=== PATIENT | male | born 1990 | race Caucasian/White ===

== ENCOUNTER 2023-08-22 20:18 | Emergency (ER) | payer OTHER, SELFPAY ==
[2023-08-22 20:22] VITALS: BP 143/90; PULSE 70; RESP 18; TEMP 36.7; O2SAT 98
--- NOTE | 2023-08-22 20:44 | ED.RECABL ---
HPI - Recheck/Abnormal Lab/Rx General Chief Complaint: Recheck/Abnormal Lab/Rx Stated Complaint: med refill Time Seen by Provider: 08/22/23 20:43 Source: patient Mode of arrival: ambulatory Limitations: no limitations History of Present Illness HPI narrative: Patient is a 33 y/o male who presents to the ED with c/o medication refill. Patient reports he recently moved to the area from [place]. He takes Adderall 20 mg twice daily and states he has been out of this medication recently. He contacted his previous primary care doctor who reportedly sent a prescription in the mail. Patient is unsure when this will arrive. He has not had a chance to obtain a primary care doctor in the area here yet. He is wanting a refill of his Adderall. Denies needing any other medications refilled. Denies any other concerns. Related Data Allergies Allergy/AdvReac Type Severity Reaction Status Date / Time amoxicillin Allergy Hives Verified 08/22/23 20:44 shellfish derived Allergy Hives Verified 08/22/23 20:44 Review of Systems Review of Systems: CONSTITUTIONAL: Denies fever, chills, or sweats. EYES: Denies visual changes, redness, or discharge. ENT: Denies rhinorrhea, congestion, sore throat, or otalgia. CARDIOVASCULAR: Denies chest pain, palpitations, or edema. RESPIRATORY: Denies cough or dyspnea. GASTROINTESTINAL: Denies abdominal pain, nausea, vomiting. MUSCULOSKELETAL: Denies back pain, joint pain, or myalgia. NEUROLOGIC: Denies headache, numbness, or weakness. All systems reviewed & are unremarkable except as noted in HPI and below Exam Narrative: GENERAL: Well appearing, well-nourished, non-toxic, in no acute distress. HEAD: Normocephalic, atraumatic. EYES: PERRL/EOMI, conjunctiva clear. NECK: Supple. No adenopathy, no masses. RESPIRATORY: Airway patent, respirations nonlabored. CARDIOVASCULAR: Regular rate and rhythm without murmurs, rubs, or gallops. ABDOMINAL: Soft, nontender, nondistended, no hepatosplenomegaly. Normoactive BS. MUSCULOSKELETAL: Moves all extremities. No gross deformities. SKIN: Warm, dry, normal color. No rashes. NEURO: A&O X3. Speech clear. Cranial nerves II-XII grossly intact. Steady gait. No ataxic movements. PSYCHIATRIC: Appropriate mood and affect. Normal interaction. Course Vital Signs Vital signs: Vital Signs Temperature 98.1 F 08/22/23 20:22 Pulse Rate 70 08/22/23 20:22 Respiratory Rate 18 08/22/23 20:22 Blood Pressure 143/90 H 08/22/23 20:22 Pulse Oximetry 98 08/22/23 20:22 Oxygen Delivery Room Air 08/22/23 20:22 Temperature 98.1 F 08/22/23 20:22 Pulse Rate 70 08/22/23 20:22 Respiratory Rate 18 08/22/23 20:22 Blood Pressure 143/90 H 08/22/23 20:22 Pulse Oximetry 98 08/22/23 20:22 Oxygen Delivery Room Air 08/22/23 20:22 MDM - Recheck/Abnormal Lab/Rx MDM Narrative Medical decision making narrative: Patient presented to ED wanting medication refill of Adderall. Recently moved to the area from [place]. Awaiting a mail-in prescription. Patient in no acute distress. VSS. Discussed that this is not a medication that we typically refill through the ER as it is not a crucial medication. Advised close follow-up with local primary care doctor. Given physician directory book. Given return precautions. Medical Records Attestation: I reviewed the patient's medical records. Discharge Plan Discharge Clinical Impression: Encounter for medication refill Patient Disposition: Home, Self-Care Condition: Stable Instructions: Antibiotic Form, Amphetamine/Dextroamphetamine (By mouth) Additional Instructions: Follow-up with primary care to receive medication refills. Otherwise contact your previous primary care doctor to check on status of refill. Follow-up/Referrals: Ralph Zafar MD [Physician] - (PRIMARY CARE) PHYSICIAN,CD MANUFACTURING SUPERVISOR [Primary Care Provider] - Time of Disposition: 21:00
== END 2023-08-22 21:18 | disposition home or self-care (01) ==
LOC: ANHED 21:01
PROVIDERS: Emergency Provider Physician Assistant
DX: Z76.0 Encounter for issue of repeat prescription (principal)
CPT/HCPCS: 99281

== ENCOUNTER 2024-06-29 18:47 | Emergency (ER) | payer OTHER, SELFPAY ==
[2024-06-29 18:50] VITALS: BP 131/88; PULSE 96; RESP 18; TEMP 36.4; O2SAT 100
[2024-06-29 20:04] VITALS: BP 132/87; PULSE 102; RESP 14; TEMP 36.9; O2SAT 98
[2024-06-29 20:16] LABS: Basophils Absolute Auto 0.1 K/mm3 (0.0-0.1); Basophils Percent Auto 0.8 % (0.2-1.2); Eosinophils Absolute Auto 0.1 K/mm3 (0-0.3); Eosinophils Percent Auto 1.7 % (0-4.4); Hematocrit 44.6 % (42.0-52.0); Hemoglobin 15.9 g/dL (14.0-18.0); Immature Granulocyte Absolute 0.01 K/mm3 (0.00-0.031); Immature Granulocyte Percent A 0.2 % (0-0.5); Lymphocytes Absolute Auto 1.81 K/mm3 (0.9-3.2); Lymphocytes Percent Auto 27.3 % (18.3-44.2); Mean Corpuscular HGB Conc 35.7 g/dl (32-36); Mean Corpuscular Hemoglobin 31.8 pg (26-34); Mean Corpuscular Volume 89.2 fl (80-100); Mean Platelet Volume 9.2 fl (7.4-10.4); Monocytes Absolute Auto 0.6 K/mm3 (0.1-0.6); Monocytes Percent Auto 9.7 % (2.6-8.5); Neutrophils Percent Auto 60.3 % (45.5-73.1); Platelet Count Result 258 k/mm3 (150-375); Red Cell Distribution Width 11.3 % (11.5-14.5); White Blood Count 6.6 K/mm3 (4.5-10.0)
[2024-06-29 20:24] VITALS: BP 127/87; PULSE 97; RESP 15; TEMP 36.7; O2SAT 97
--- NOTE | 2024-06-29 20:24 | ED.GENADULT ---
HPI - General Adult General Chief complaint: GI Bleed Stated complaint: I am shitting blood Time Seen by Provider: 06/29/24 19:29 History of Present Illness HPI narrative: Patient is a 34-year-old male who presents to the emergency department this evening complaining of hematochezia. Patient states that he noticed bright red blood in his stools a few days ago and admits that he has had similar symptoms in the past which was due to a hemorrhoid. Patient states that this time he noticed that the bleeding was more than it was last time and he wanted to get it checked out. Admits to mild diarrhea as well. Denies any fevers or chills. Denies any pain with defecation, denies any family history of inflammatory bowel disease including ulcerative colitis and Crohn's and any history of colon cancer. Denies any nausea, vomiting or abdominal pain. No additional symptoms or concerns at this time. Related Data Allergies Allergy/AdvReac Type Severity Reaction Status Date / Time amoxicillin Allergy Hives Verified 06/28/24 16:57 shellfish derived Allergy Anaphylaxis Verified 06/29/24 20:24 Review of Systems Review of Systems: All systems are reviewed and are negative unless stated otherwise in the HPI. PMFSH Past Medical History Medical History ADHD Anxiety Depression Surgical History Surgical History Hx of tonsillectomy Family History Family History Father Hypertension Depression Mother Depression Social History Social History Smoking packs per day: 0 Smoking cigarettes per day: 0.0 Smoking status: Never smoker Smokeless tobacco user: chewing tobacco Second hand tobacco smoke exposure: No Alcohol intake: current Alcohol use details: on occassion Substance use: never Substance use type: does not use Lack of Transportation: No Lack of Food: Sometimes True Current Housing: I Have Housing Concerned About Future Housing: No Difficulty Paying Gas/Electric Bills: No Difficulty Paying for Meds: No Currently Unemployed: No Education: Master's Degree or Higher Difficulty w/ Childcare or Family Care: No Exam Narrative: General: Alert, awake, afebrile, in no acute distress. HEENT: PERRL, no rhinorrhea, no post nasal drip, oropharynx clear. Cardiovascular: Regular rate and rhythm, no murmurs, rubs or gallops, no peripheral edema. Respiratory: Clear to auscultation bilaterally, no tachypnea, no wheezing, no rhonchi, no rubs, no respiratory distress. Abdomen: Soft, nontender, nondistended, no rebound, no guarding, no peritoneal signs. Rectal: Exam performed with presence of male nurse hearing aid repair technician revealing good rectal tone, fecal occult blood test negative, no external hemorrhoids or fissures identified. Musculoskeletal: No joint swelling or deformity, normal muscle tone. Skin: No rashes or petechia, no signs of infection. Neurological: Alert and oriented to person, place, and time. Follows all commands. No focal deficits, speech is clear and fluent. Course Vital Signs Vital signs: Vital Signs Temperature 97.6 F 06/29/24 18:50 Pulse Rate 96 06/29/24 18:50 Respiratory Rate 18 06/29/24 18:50 Blood Pressure 131/88 06/29/24 18:50 Pulse Oximetry 100 06/29/24 18:50 Temperature 98.1 F 06/29/24 20:24 Pulse Rate 97 06/29/24 20:24 Respiratory Rate 15 06/29/24 20:24 Blood Pressure 127/87 06/29/24 20:24 Pulse Oximetry 97 06/29/24 20:24 Oxygen Delivery Room Air 06/29/24 20:04 Medical Decision Making [facility] Narrative Medical decision making narrative: The patient was evaluated by myself in the emergency department. History is obtained from patient who is an independent historian and physical exam was performed. External medical jared
[2024-06-29 20:26] LABS: Alanine Aminotransferase 39 U/L (6-50); Albumin Level 4.4 g/dL (3.5-5.1); Alkaline Phosphatase 69 U/L (38-126); Anion Gap 9 mmol/L (4-12); Aspartate Amino Transferase 37 U/L (17-59); Bilirubin,Total 0.5 mg/dL (0.2-1.3); Blood Urea Nitrogen 21 mg/dL (9-20); Calcium 9.1 mg/dL (8.4-10.2); Carbon Dioxide 29 mmol/L (22-30); Chloride 99 mmol/L (98-107); Estimated CRCL calculation 106 ml/min; Estimated Glomerular Filt Rate > 60; Glucose 108 mg/dL (65-110); Potassium 4.1 mmol/L (3.4-5.0); Sodium 137 mmol/L (137-145)
[2024-06-29 21:42] LABS: Add Urine Microscopic? NO; Appearance Urine Clear (Clear); Bilirubin Urine Negative (Negative); Blood Urine Negative (Negative); Color Urine Yellow (Yellow); Glucose Urine UA Negative (Negative); Ketones Urine Trace mg/dL (Negative); Leukocyte Esterase Ur Negative LEU/UL (Negative); Nitrate Urine Negative (Negative); Protein Urine Negative (Negative); Specific Grav Ur 1.015 (1.001-1.035); Urobilinogen Urine 0.2 mg/dL (<2.0); pH Urine 6.5 (5.0-9.0)
== END 2024-06-29 22:32 | disposition home or self-care (01) ==
PROVIDERS: Emergency Provider Emergency Medicine; PCP Emergency Medicine
DX: K62.5 Hemorrhage of anus and rectum (principal); F90.9 Attention-deficit hyperactivity disorder, unspecified type; F41.9 Anxiety disorder, unspecified; F32.A Depression, unspecified; Z79.899 Other long term (current) drug therapy
CPT/HCPCS: 36415; 80053; 81003; 85025; 99283